=== PATIENT | female | born 1995 | race Two or more races ===

== ENCOUNTER → 2019-11-11 | Outpatient (CLI) | payer OTHER | END | disposition home or self-care (01) | LOC: PRENATAL 08:30 | DX: O36.4XX1 Maternal care for intrauterine death, fetus 1 (principal); O36.80X1 Pregnancy with inconclusive fetal viability, fetus 1; O09.291 Supervision of pregnancy with other poor reproductive or obstetric history, first trimester; O09.91 Supervision of high risk pregnancy, unspecified, first trimester ==

== ENCOUNTER → 2020-01-06 | Outpatient (CLI) | payer OTHER | END | disposition home or self-care (01) | LOC: PRENATAL 08:40 | DX: O99.212 Obesity complicating pregnancy, second trimester (principal); O09.292 Supervision of pregnancy with other poor reproductive or obstetric history, second trimester ==

== ENCOUNTER → 2020-02-03 | Outpatient (CLI) | payer OTHER | END | disposition home or self-care (01) | LOC: PRENATAL 10:30 | DX: O26.842 Uterine size-date discrepancy, second trimester (principal); O99.212 Obesity complicating pregnancy, second trimester; O00-O9A Pregnancy, childbirth and the puerperium; O36.4XX1 Maternal care for intrauterine death, fetus 1; O09.292 Supervision of pregnancy with other poor reproductive or obstetric history, second trimester; O13.2 Gestational [pregnancy-induced] hypertension without significant proteinuria, second trimester ==

== ENCOUNTER → 2020-03-03 | Outpatient (CLI) | payer OTHER ==
[~2020-03-03] MED LIST: CELESTONE S6 MG/1 ML IJ
== END | disposition home or self-care (01) ==
LOC: PRENATAL 11:00
PROVIDERS: ATTEND Specialist
DX: O26.843 Uterine size-date discrepancy, third trimester (principal); O99.213 Obesity complicating pregnancy, third trimester; O36.4XX1 Maternal care for intrauterine death, fetus 1; O09.293 Supervision of pregnancy with other poor reproductive or obstetric history, third trimester; O99.89 Other specified diseases and conditions complicating pregnancy, childbirth and the puerperium; O36.5931 Maternal care for other known or suspected poor fetal growth, third trimester, fetus 1; O13.3 Gestational [pregnancy-induced] hypertension without significant proteinuria, third trimester

== ENCOUNTER 2020-03-31 12:23 | Outpatient (CLI) | payer OTHER ==
[2020-03-31] MEDS ORDERED: CELESTONE S6 MG/1 ML IJ (15:43)
== END 2020-03-31 16:13 | disposition home or self-care (01) ==
LOC: OBS/DEL 12:23 → NST 12:23 → OBS/DEL 15:24
PROVIDERS: ATTEND Specialist
DX: O41.03X1 Oligohydramnios, third trimester, fetus 1 (principal)

== ENCOUNTER → 2020-03-31 | Outpatient (CLI) | payer OTHER | END | disposition home or self-care (01) | LOC: PRENATAL 11:00 | PROVIDERS: ATTEND Specialist | DX: O26.843 Uterine size-date discrepancy, third trimester (principal); O99.213 Obesity complicating pregnancy, third trimester; O36.4XX1 Maternal care for intrauterine death, fetus 1; O09.293 Supervision of pregnancy with other poor reproductive or obstetric history, third trimester ==

== ENCOUNTER 2020-04-07 15:16 | Outpatient (CLI) | payer OTHER | END 2020-04-07 16:40 | disposition home or self-care (01) | LOC: NST 15:16 | PROVIDERS: ATTEND Specialist | DX: Z34.00 Encounter for supervision of normal first pregnancy, unspecified trimester (principal); Z34.83 Encounter for supervision of other normal pregnancy, third trimester ==

== ENCOUNTER 2020-04-14 13:55 | Outpatient (CLI) | payer OTHER | END 2020-04-14 14:51 | disposition home or self-care (01) | LOC: NST 13:55 | PROVIDERS: ATTEND Specialist | DX: Z34.03 Encounter for supervision of normal first pregnancy, third trimester (principal) ==

== ENCOUNTER 2020-04-18 18:45 | Outpatient (CLI) | payer OTHER ==
[2020-04-18] MEDS ORDERED: PRENATAL DHA200 MG PO (19:00)
[2020-04-18] MEDS ORDERED: VITAMIN C100 MG PO (19:01)
[2020-04-18] MEDS ORDERED: ASPIRIN81 M1 PO (19:01)
== END 2020-04-19 14:53 | disposition home or self-care (01) ==
LOC: OBS/DEL 18:45
PROVIDERS: ATTEND Specialist
DX: O26.843 Uterine size-date discrepancy, third trimester (principal); O36.8131 Decreased fetal movements, third trimester, fetus 1; O41.03X1 Oligohydramnios, third trimester, fetus 1

== ENCOUNTER 2020-04-21 13:27 | Inpatient (IN) | payer OTHER ==
[~2020-04-21] VITALS: Ht 154.9 cm; Wt 114.8 kg
[~2020-04-21 13:27] MED LIST changes: +ASPIRIN81 M1 PO; +PRENATAL DHA200 MG PO; +VITAMIN C100 MG PO
== END 2020-04-25 12:22 | DRG 807 ==
LOC: LAB 13:27 → LDR 04-23 06:04 → OB/GYN 04-23 06:04
PROVIDERS: ADMIT Specialist; ATTEND Specialist
PROC: 10E0XZZ Delivery of Products of Conception, External Approach (ICD-10-PCS; principal; 2020-04-23)
PROC: 0HQ9XZZ Repair Perineum Skin, External Approach (ICD-10-PCS; 2020-04-23)
PROC: 4A0HXFZ Measurement of Products of Conception, Cardiac Rhythm, External Approach (ICD-10-PCS; 2020-04-23)
DX: O60.14X0 Preterm labor third trimester with preterm delivery third trimester, not applicable or unspecified (principal); Z37.0 Single live birth; O70.0 First degree perineal laceration during delivery; Z3A.36 36 weeks gestation of pregnancy

== ENCOUNTER → 2021-03-08 | Outpatient (CLI) | payer OTHER | END | disposition home or self-care (01) | LOC: PRENATAL 08:00 | PROVIDERS: ATTEND Obstetrics & Gynecology Maternal & Fetal Medicine | DX: O35.0XX1 Maternal care for (suspected) central nervous system malformation in fetus, fetus 1 (principal); O35.3XX1 Maternal care for (suspected) damage to fetus from viral disease in mother, fetus 1; O98.512 Other viral diseases complicating pregnancy, second trimester; O99.212 Obesity complicating pregnancy, second trimester; Z36.89 Encounter for other specified antenatal screening; Z3A.20 20 weeks gestation of pregnancy ==

== ENCOUNTER → 2021-05-09 | Outpatient (CLI) | payer OTHER | END | disposition home or self-care (01) | LOC: PRENATAL 12:42 | PROVIDERS: ATTEND Obstetrics & Gynecology Maternal & Fetal Medicine | DX: O35.0XX1 Maternal care for (suspected) central nervous system malformation in fetus, fetus 1 (principal); O99.213 Obesity complicating pregnancy, third trimester; O44.03 Complete placenta previa NOS or without hemorrhage, third trimester; Z36.89 Encounter for other specified antenatal screening; Z3A.29 29 weeks gestation of pregnancy ==

== ENCOUNTER 2021-05-25 10:07 | Outpatient (CLI) | payer OTHER | END 2021-05-25 15:47 | disposition home or self-care (01) | LOC: OBS/DEL 10:07 | PROVIDERS: ATTEND Specialist | DX: O26.893 Other specified pregnancy related conditions, third trimester (principal); Z04.3 Encounter for examination and observation following other accident; V49.88XA Car occupant (driver) (passenger) injured in other specified transport accidents, initial encounter; Y93.89 Activity, other specified; Y92.488 Other paved roadways as the place of occurrence of the external cause; Y99.8 Other external cause status; Z3A.30 30 weeks gestation of pregnancy ==

== ENCOUNTER 2021-07-13 17:26 | Inpatient (IN) | payer OTHER ==
[~2021-07-13] VITALS: Ht 157.5 cm; Wt 113.4 kg
== END 2021-07-15 13:59 | disposition home or self-care (01) | DRG 807 ==
LOC: LDR 17:26 → OB/GYN 17:26
PROVIDERS: ADMIT Specialist; ATTEND Specialist
PROC: 10E0XZZ Delivery of Products of Conception, External Approach (ICD-10-PCS; principal; 2021-07-13)
PROC: 0HQ9XZZ Repair Perineum Skin, External Approach (ICD-10-PCS; 2021-07-13)
PROC: 10907ZC Drainage of Amniotic Fluid, Therapeutic from Products of Conception, Via Natural or Artificial Opening (ICD-10-PCS; 2021-07-13)
PROC: 4A1HXFZ Monitoring of Products of Conception, Cardiac Rhythm, External Approach (ICD-10-PCS; 2021-07-13)
DX: O10.02 Pre-existing essential hypertension complicating childbirth (principal); Z37.0 Single live birth; O70.0 First degree perineal laceration during delivery; Z3A.37 37 weeks gestation of pregnancy; Z20.822 Contact with and (suspected) exposure to COVID-19